=== PATIENT | male | born 1940 ===

== ENCOUNTER 2017-11-06 09:20 | Outpatient (CLI) | payer MEDICARE ==
[2017-11-06] MEDS ORDERED: Iopamidol 370 76% 100 ML VIAL ONE (17:06)
== END 2017-11-06 09:21 | disposition home or self-care (01) ==
LOC: BICCT 09:20
PROVIDERS: ATTEND Urology
DX: R31.29 Other microscopic hematuria (principal); N28.1 Cyst of kidney, acquired; Z90.79 Acquired absence of other genital organ(s)
CPT/HCPCS: 74178